=== PATIENT | male | born 1950 | race Caucasian/White ===

== ENCOUNTER 2017-05-30 22:26 | Emergency (ER) | payer OTHER ==
[~2017-05-30] VITALS: Ht 160 cm; Wt 68.6 kg
[~2017-05-30 22:26] MED LIST: 1-ME1LIQ PO; ALBU6.7H INH; ASPI81TA82 PO; BACT800T5 PO; CLEO300C2 PO; METO50TA PO; ZITH250T PO
[2017-05-30 22:44] VITALS: BP 170/81; PULSE 96; RESP 18; TEMP 97.9; O2SAT 98
[2017-05-30] MEDS ORDERED: MECL-62 PO (23:27)
--- NOTE | 2017-05-30 23:27 | PD ---
HPI Chief Complaint: Dizziness Time Seen by Provider: 23:09 Travel History International Travel<30 days: No Contact w/Intl Traveler<30days: No Traveled to known affect area: No History of Present Illness HPI This 66-year-old male presents because he had an episode of vertigo at home. The vertigo is improved considerably. He has had episodes of vertigo in the past and is seeing a neurologist. The neurologist did a brain scan which showed that the patient had a pituitary tumor. He is now undergoing evaluation for possible removal of tumor. He is supposed to see an nursing director. He had eye surgery for pterygium couple of weeks ago. He has been on some eyedrops. He recently was found to have elevated pressure in the eye and was started on atenolol also. He says that he has been feeling somewhat cold. He has not had a cough or sore throat. There is no dysuria. PFSH Past Medical History Hx Anticoagulant Therapy: Yes (asa) Asthma: No Anxiety: Yes Depression: Yes Heart Rhythm Problems: No Cancer: No Cardiac Catheterization: Yes Cardiovascular Problems: Yes High Cholesterol: Yes Chest Pain: Yes Congestive Heart Failure: No COPD: No Cerebrovascular Accident: No Coronary Artery Disease: Yes Diminished Hearing: No Endocrine: No Genitourinary: Yes Hypertension: Yes Immune Disorder: No Kidney Stones: No Musculoskeletal: No Neurologic: Yes Psychiatric: Yes Reproductive: No Respiratory: Yes (FREQUENT BRONCHITIS) Immunizations Current: Yes Migraines: No Myocardial Infarction: Yes Renal Failure: No Seizures: No Sleep Apnea: No Past Surgical History Coronary Artery Bypass Graft: Yes Other Surgery: No Social History Alcohol Use: No Tobacco Use: No Substance Use: No Allergies-Medications (Allergen,Severity, Reaction): Coded Allergies: No Known Allergies (Unverified , 05/30/17) Reported Meds & Prescriptions Reported Meds & Active Scripts Active Zithromax Z-Joe (Azithromycin) 250 Mg Tab 250 Mg PO DIRECTED 500 MG (2 TABLETS) PO ON DAY 1, THEN 250 MG (1 TABLET) PO ON DAYS 2 TO 5. Proventil Hfa (Albuterol Sulfate) 6.7 Gm Aero 2 Puff INH Q4H PRN * SHAKE WELL BEFORE USE * Cleocin (Clindamycin HCl) 300 Mg Cap 300 Mg PO QID Bactrim DS (Sulfamethoxazole-Trimethoprim DS) 1 Tab Tab 1 Tab PO BID 10 Days Reported Amlodipine Besylate 10 mg (Amlodipine Besylate) 10 Mg Tab 1 Tab PO DAILY Aspir-81 (Aspirin) 81 Mg Tab 81 Mg PO BID Metoprolol Tartrate 50 mg (Metoprolol Tartrate) 50 Mg Tab 25 Mg PO BID HOLD FOR SBP LESS THAN 100 OR DBP LESS THAN 60 Review of Systems General / Constitutional: No: Fever, Chills Eyes: Positive: Blurred Vision, No: Diploplia HENT: Positive: Headaches Cardiovascular: No: Chest Pain or Discomfort, Palpitations Respiratory: No: Cough, Shortness of Breath Genitourinary: Positive: Frequency Musculoskeletal: No: Myalgias Skin: No Rash Neurologic: No: Weakness Psychiatric: No: Anxiety Hematologic/Lymphatic: No: Easy Bruising Physical Exam Narrative GENERAL: Well-developed male SKIN: Focused skin assessment warm/dry. HEAD: Atraumatic. Normocephalic. EYES: Pupils equal and round. No scleral icterus. No injection or drainage. There is mild clouding of the cornea of the left eye where he had the pterygium removed. Extraocular movements are full ENT: No nasal bleeding or discharge. Mucous membranes pink and moist. NECK: Trachea midline. No JVD. CARDIOVASCULAR: Regular rate and rhythm. No murmur appreciated. RESPIRATORY: No accessory muscle use. Clear to auscultation. Breath sounds equal bilaterally. GASTROINTESTINAL: Abdomen soft, non-tender, nondistended. Hepatic and splenic margins not palpable. MUSCULOSKELETAL: No obvious deformities. No clubbing. No cyanosis. No edema. NEUROLOGICAL: Awake and alert. No obvious cranial nerve deficits. Motor grossly within normal limits. Normal speech. PSYCHIATRIC: Appropriate mood and affect; insight and judgment normal. Data Data Last Documented VS Vital Signs Date Time Temp Pulse Resp B/P (MAP) Pulse Ox O2 Delivery O2 Flow Rate FiO2 05/30/17 23:22 Room Air 05/30/17 22:44 97.9 96 18 170/81 (110) 98 MDM Medical Decision Making Medical Screen Exam Complete: Yes Emergency Medical Condition: Yes Medical Record Reviewed: Yes Differential Diagnosis Differential includes vertigo Narrative Course Patient has a history of vertigo but he has never been on meclizine. I will prescribe some meclizine now. He is stable for discharge Diagnosis Primary Impression: Vertigo Scripts Meclizine (Meclizine) 25 Mg Tab 25 MG PO TID Y for VERTIGO, #20 TAB 0 Refills Prov: Jeremy Machado MD 05/30/17 Disposition: 01 DISCHARGE HOME Condition: Stable Jeremy Machado MD May 30, 2017 23:27
[2017-05-30] MEDS ORDERED: COQ-30CA2 (23:30)
[2017-05-30] MEDS ORDERED: ASPI81CH3 CHEW (23:30)
[2017-05-30] MEDS ORDERED: AK-T0.3S EACH EYE (23:30)
[2017-05-30] MEDS ORDERED: AMLO10TA2 PO (23:30)
[2017-05-30] MEDS ORDERED: TERA10CA3 PO (23:30)
[2017-05-30] MEDS ORDERED: TIMO0.5S30 EACH EYE (23:30)
[2017-05-30] MEDS ORDERED: ZINC220T PO (23:30)
[2017-05-30] MEDS ORDERED: CHOL1CAP14 PO (23:30)
[2017-05-30] MEDS ORDERED: MECLIZINE HCL 25 MG TAB PO ONE (23:30)
[2017-05-31 00:01] VITALS: BP 140/75
== END 2017-05-31 00:02 | disposition home or self-care (01) ==
LOC: PHED 22:26
DX: R42 Dizziness and giddiness (principal); I10 Essential (primary) hypertension; I25.10 Atherosclerotic heart disease of native coronary artery without angina pectoris; I25.2 Old myocardial infarction; Z88.6 Allergy status to analgesic agent; Z95.1 Presence of aortocoronary bypass graft
CPT/HCPCS: 99282